=== PATIENT | female | born 1970 | race Caucasian/White ===

== ENCOUNTER 2017-11-12 09:03 | Inpatient (IN) | payer OTHER ==
[~2017-11-12] VITALS: Ht 175.3 cm; Wt 100.0 kg
[2017-11-12 09:49] LABS: BASOPHIL (%) 0.3 % (0-1); EOSINOPHIL (%) 0.1 % (0-5); HEMATOCRIT 36.6 % (36.0-46.0); HEMOGLOBIN 12.4 G/DL (11.9-15.5); IMMATURE GRANULOCYTE (%) 0.4 % (0.0-0.7); LYMPHOCYTE (%) 23.3 % (15-42); LYMPHOCYTE COUNT 2.3 K/uL (1.0-2.8); MCH 27.3 PG (29.0-34.0); MCHC 33.9 G/DL (30.0-36.0); MCV 80.4 FL (83-99); MONOCYTE (%) 8.6 % (3-12); MONOCYTE COUNT 0.9 K/uL (0-0.8); NEUTROPHIL (%) 67.3 % (45-76); NEUTROPHIL COUNT 6.8 K/uL (1.8-6.4); PLATELET COUNT 283 K/uL (156-360); RBC DIS.WIDTH-CV 13.9 % (11.8-14.6); RBC DIS.WIDTH-SD 40.4 % (39-53); RED BLOOD COUNT 4.55 M/uL (3.80-5.20)
[2017-11-12 09:52] LABS: APPEARANCE SL.HAZY ((CLEAR)); BILIRUBIN NEGATIVE; BLOOD NEGATIVE; COLOR YELLOW ((YELLOW)); GLUCOSE (STRIP) NEGATIVE; KETONES 80; LEUKOCYTES NEGATIVE; NITRITE NEGATIVE; PROTEIN (STRIP) 100
[2017-11-12 10:01] LABS: ALBUMIN 4.7 g/dL (3.2-4.8); CHLORIDE 105 mEq/L (99-109); POTASSIUM 3.2 mEq/L (3.7-5.4); SODIUM 145 mEq/L (136-147)
[2017-11-12 10:01] LABS: AMPHETAMINE NEGATIVE (500 ng/mL); BARBITURATES NEGATIVE (200 ng/mL); BENZODIAZEPINES NEGATIVE (150 ng/mL); BUPRENORPHINE NEGATIVE (10 ng/mL); COCAINE NEGATIVE (150 ng/mL); METHADONE NEGATIVE (200 ng/mL); METHAMPHETAMINE NEGATIVE (500 ng/mL); OPIATES (MORPHINE) NEGATIVE (100 ng/mL); OXYCODONE NEGATIVE (100 ng/mL); PHENCYCLIDINE NEGATIVE (25 ng/mL); PROPOXYPHENE NEGATIVE (300 ng/mL); THC CANNABINOIDS NEGATIVE (50 ng/mL); TRICYCLIC ANTIDEPRESSANTS NEGATIVE (300 ng/mL)
[2017-11-12 10:03] LABS: GLUCOSE 107 mg/dL (70-99)
[2017-11-12 10:04] LABS: TOTAL PROTEIN 7.8 g/dL (6.4-8.3)
[2017-11-12 10:05] LABS: TOTAL BILIRUBIN 0.8 mg/dL (0.0-1.0)
[2017-11-12 10:06] LABS: SERUM ETHYL ALCOHOL < 10 mg/dL
[2017-11-12 10:08] LABS: ALKALINE PHOSPHATASE 77 IU/L (3-129)
[2017-11-12 10:09] LABS: AST (GOT) 104 IU/L (2-34); UREA NITROGEN (BUN) 19 mg/dL (9-23)
[2017-11-12 10:10] LABS: SALICYLATE < 5.0 MG/DL (15-30)
[2017-11-12 10:11] LABS: ACETAMINOPHEN (TYLENOL) < 10 mcg/mL (10-30); ALT (GPT) 64 IU/L (3-49)
[2017-11-12 10:17] LABS: QUANTITATIVE HCG < 4.0 MIU/ML
[2017-11-12 10:18] LABS: GFR ESTIMATE (CALCULATED) > 59 mL/min/
[2017-11-12 10:35] LABS: BACTERIA RARE /HPF; EPITHELIAL CELLS 2+ /HPF; MUCUS TRACE /LPF; RED BLOOD CELLS 0-5 /HPF (0-5); UCUL ADDED? YES
[2017-11-12 13:57] VITALS: BP 126/80
[2017-11-12 14:02] VITALS: BP 126/80
[2017-11-12 15:31] VITALS: BP 95/51
[2017-11-13 08:08] VITALS: BP 135/71
[2017-11-13 15:42] VITALS: BP 139/78
[2017-11-14 07:46] VITALS: BP 139/72
[2017-11-14 15:37] VITALS: BP 145/73
[2017-11-15 07:51] VITALS: BP 132/73
[2017-11-15 15:46] VITALS: BP 141/67
[2017-11-16 08:02] VITALS: BP 107/53
[2017-11-16] MEDS ORDERED: BACTRIM,SEPT1 TABLET PO (12:40)
[2017-11-16] MEDS ORDERED: DEPAKOTE ER500 MG PO (12:40)
[2017-11-16] MEDS ORDERED: DEPAKOTE ER250 MG PO (12:41)
[2017-11-16] MEDS ORDERED: INDERAL10 MG PO (12:41)
[2017-11-16 15:40] VITALS: BP 136/70
== END 2017-11-16 16:12 | disposition home or self-care (01) | DRG 885 ==
LOC: EME 09:03 → EDOF 11:44 → 1WEST 11:44 → ENRESERV 13:50 → 1WEST 13:51
PROVIDERS: Emergency Medicine
DX: F20.9 Schizophrenia, unspecified (principal); R56.9 Unspecified convulsions; F31.9 Bipolar disorder, unspecified; F43.10 Post-traumatic stress disorder, unspecified; D72.829 Elevated white blood cell count, unspecified; Z87.891 Personal history of nicotine dependence; Z79.899 Other long term (current) drug therapy
CPT/HCPCS: 70553; 80053; 81003; 84702; 85025; 87086; 90837; 94660; 95819; 99281; 99285; G0480; J1630

== ENCOUNTER 2018-01-01 22:33 | Inpatient (IN) | payer OTHER ==
[~2018-01-01] VITALS: Ht 172.7 cm; Wt 106.4 kg
[~2018-01-01 22:33] MED LIST: BACTRIM,SEPT1 TABLET PO; DEPAKOTE ER250 MG PO; DEPAKOTE ER500 MG PO; INDERAL10 MG PO
[2018-01-01 23:26] LABS: HEMOGLOBIN 11.5 G/DL (11.9-15.5); MCH 28.5 PG (29.0-34.0); MCHC 33.8 G/DL (30.0-36.0); MCV 84.4 FL (83-99); PLATELET COUNT 314 K/uL (156-360); RBC DIS.WIDTH-SD 43.4 % (39-53); RED BLOOD COUNT 4.03 M/uL (3.80-5.20); WHITE BLOOD COUNT 10.9 K/uL (4.1-10.2)
[2018-01-01 23:36] LABS: CHLORIDE 106 mEq/L (99-109); POTASSIUM 3.3 mEq/L (3.7-5.4); SODIUM 141 mEq/L (136-147)
[2018-01-01 23:38] LABS: GLUCOSE 119 mg/dL (70-99)
[2018-01-01 23:41] LABS: SERUM ETHYL ALCOHOL < 10 mg/dL
[2018-01-01 23:42] LABS: CREATININE 0.7 mg/dL (0.6-1.3); GFR ESTIMATE (CALCULATED) > 59 mL/min/
[2018-01-01 23:43] LABS: UREA NITROGEN (BUN) 6 mg/dL (9-23)
[2018-01-02 00:08] LABS: ACETAMINOPHEN (TYLENOL) < 10 mcg/mL (10-30); SALICYLATE < 5.0 MG/DL (15-30)
[2018-01-02 01:35] LABS: AMPHETAMINE NEGATIVE (500 ng/mL); BARBITURATES NEGATIVE (200 ng/mL); BENZODIAZEPINES NEGATIVE (150 ng/mL); BUPRENORPHINE NEGATIVE (10 ng/mL); COCAINE NEGATIVE (150 ng/mL); METHADONE NEGATIVE (200 ng/mL); METHAMPHETAMINE NEGATIVE (500 ng/mL); OPIATES (MORPHINE) NEGATIVE (100 ng/mL); OXYCODONE NEGATIVE (100 ng/mL); PHENCYCLIDINE NEGATIVE (25 ng/mL); PROPOXYPHENE NEGATIVE (300 ng/mL); THC CANNABINOIDS NEGATIVE (50 ng/mL); TRICYCLIC ANTIDEPRESSANTS NEGATIVE (300 ng/mL)
[2018-01-02] MEDS ORDERED: VITAMIN C1000 MG PO (05:42)
[2018-01-02 15:59] VITALS: BP 116/66
[2018-01-02 22:14] VITALS: BP 132/84
[2018-01-03 07:52] VITALS: BP 116/62
[2018-01-03 16:46] VITALS: BP 135/76
[2018-01-04 08:02] VITALS: BP 129/77
== END 2018-01-04 12:00 | disposition home or self-care (01) | DRG 883 ==
LOC: EME 22:33 → 1WEST 01-02 02:28 → EDOF 01-02 02:28 → 1WEST 01-02 02:28 → ENRESERV 01-02 05:42 → 1WEST 01-02 06:00
PROVIDERS: Emergency Medicine
DX: F60.9 Personality disorder, unspecified (principal); F45.9 Somatoform disorder, unspecified; R45.851 Suicidal ideations; R45.850 Homicidal ideations; E66.9 Obesity, unspecified; G40.909 Epilepsy, unspecified, not intractable, without status epilepticus; Z91.19 Patient's noncompliance with other medical treatment and regimen; Z91.14 Patient's other noncompliance with medication regimen; Z87.891 Personal history of nicotine dependence; Z68.35 Body mass index [BMI] 35.0-35.9, adult
CPT/HCPCS: 80048; 81025; 85027; 90839; 94660; 97150 GO; 97165 GO; 99281; 99285; G0480